=== PATIENT | male | born 1985 | race African-American/Black ===

== ENCOUNTER 2019-09-23 01:50 | Emergency (ER) | payer OTHER ==
[~2019-09-23] VITALS: Ht 177.8 cm; Wt 81.8 kg
[~2019-09-23 01:50] MED LIST: EPIN0.3P4 INJ; HYDR28.311 TP; PRED20TA PO
[2019-09-23 01:52] VITALS: Ht 177.8 cm; Wt 81.8 kg
[2019-09-23] MEDS ORDERED: EPINEPHrine 1 MG INJ IM STA (01:55)
[2019-09-23] MEDS ORDERED: METHYLPREDNISOLONE 125 MG INJ IV ONE (02:00)
[2019-09-23] MEDS ORDERED: FAMOTIDINE 20 MG INJ IV ONE (02:00)
[2019-09-23] MEDS ORDERED: DIPHENHYDRAMINE 50 MG INJ IV ONE (02:00)
[2019-09-23] MEDS ORDERED: SOD CHLORIDE 0.9% 1,000 ML IV ONE (02:00)
[2019-09-23] MEDS ORDERED: KETOROLAC 15 MG INJ IV STA (02:21)
[2019-09-23] MEDS ORDERED: LIDOCAINE 4% CR TOP ONE (03:00)
[2019-09-23 05:06] VITALS: BP 131/89; PULSE 78; RESP 18
== END 2019-09-23 05:06 | disposition home or self-care (01) ==
LOC: E/R 01:50
DX: R22.0 Localized swelling, mass and lump, head (principal); H02.846 Edema of left eye, unspecified eyelid; H02.843 Edema of right eye, unspecified eyelid
CPT/HCPCS: 96372; 96374; 96375; J0171; J1200; J1885; J2930; J7030; Z7502; Z7610